=== PATIENT | male | born 1940 | race Caucasian/White ===

== ENCOUNTER 2017-02-01 10:44 | Inpatient (IN) | payer MEDICARE, MEDICAID ==
[2017-02-01 11:54] LABS: #Basophils 0.1 thou/uL (0.0-0.2); #Eosinphils 0.2 thou/uL (0.0-0.7); #Lymphocytes 1.4 thou/uL (1.20-3.40); #Monocytes 0.6 thou/uL (0.11-0.59); #Neutrophils 5.7 thou/uL (1.40-6.50); %Basophils 0.8 % (0.0-1.0); %Lymphocytes 17.8 % (21.0-51.0); %Neutrophils 72.5 % (42.0-75.0); Hemoglobin 15.2 g/dL (14.0-18.0); Mean Corpuscular HGB CONC 33.6 g/dL (32.0-36.0); Mean Corpuscular Hemoglobin 29.7 pg (27.0-31.0); Mean Corpuscular Volume 88.3 fl (80.0-94.0); Mean Platelet Volume 6.5 fL (7.4-10.4); Platelet Count 243 thou/uL (130-400); RBC Distribution Width 13.1 % (11.5-14.5); Red Blood Cell (RBC) Count 5.12 mill/uL (4.70-6.10); White Blood Cell (WBC) Count 7.9 thou/uL (4.8-10.8)
[2017-02-01 12:14] LABS: ALT (SGPT) 15 U/L (8-55); AST (SGOT) 14 U/L (5-34); Alkaline Phosphatase 79 U/L (40-150); Anion Gap 16 mmol/L (10-20); BUN (Urea Nitrogen) 22 mg/dL (8.4-25.7); Bilirubin, Total 0.6 mg/dL (0.2-1.2); CK (CPK) 103 U/L (30-200); CKMB 1.8 ng/mL (0-6.6); Calc. Creatinine Clearance 0 mL/min (70-130); Calcium 9.8 mg/dL (7.8-10.44); Carbon Dioxide 26 mmol/L (23-31); Chloride 103 mmol/L (98-107); Estimated GFR-MDRD 53; Globulin 2.9 g/dL (2.4-3.5); Glucose 120 mg/dL (83-110); Potassium 4.7 mmol/L (3.5-5.1); Protein, Total 6.9 g/dL (5.8-8.1); Sodium 140 mmol/L (136-145); Troponin I 0.032 ng/mL (< 0.028)
--- NOTE | 2017-02-01 12:20 | CT ---
HEAD CT WITHOUT CONTRAST 02/01/2017 HISTORY: Altered mental status. COMPARISON: 03/21/2016 TECHNIQUE: Serial axial CT imaging at 5 mm intervals, from the vertex through the skull base, without contrast. FINDINGS: The imaged paranasal sinuses and mastoid air cells are well aerated. There is no displaced calvaria l fracture. There is stable posterior left-sided periventricular encephalomacia within the occipital lobe, evide nce of prior left M[employer]PRENTICE infarction. No intracranial hemorrhage, midline shift, or mass effect. No ac ponce findings. There is a soft tissue mass in the midline frontal region, just superior to the nasal bones, measuri ng 1.6 cm in transverse dimension, grossly unchanged. IMPRESSION: 1. No acute findings. 2. 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 POS: [facility]
--- NOTE | 2017-02-01 12:35 | RAD ---
AP CHEST: Indication: Altered mental status. Comparison: 04-30-11 FINDINGS: The lungs are clear. There is a new dual-lead AICD. There are vascular calcifications involving the aortic arch which are stable. No pleural effusion or pneumothorax is evident. No acute osseous abnor mality is evident. IMPRESSION: No acute cardiopulmonary abnormality. POS: [facility]
[2017-02-01 13:22] LABS: Bilirubin Negative (Negative); Blood, Urine Negative (Negative); Glucose, Urine (Dipstick) 100 mg/dL (Negative); Leukocyte Trace (Negative); Nitrite Negative (Negative); Protein, Urine (Dipstick) Negative (Neg-Trace); Specific Gravity, Urine 1.015 (1.005-1.030); Urobilinogen 0.2 mg/dL (0.2-1.0)
[2017-02-01 13:30] LABS: Bacteria/HPF Rare-Few HPF (None Seen); Clarity Hazy (Clear); RBC/HPF 0-3 HPF (0-3)
[2017-02-01] MEDS ORDERED: Nitrofurantoin Monohyd/M-Cryst 100 MG CAP ONE (14:04)
[2017-02-01 15:30] VITALS: BMI 25.4
[2017-02-01] MEDS ORDERED: Docusate 100 MG CAP PO PRN (16:03)
[2017-02-01] MEDS ORDERED: Acetaminophen 325 MG TAB PO PRN (16:03)
[2017-02-01] MEDS ORDERED: Ondansetron ODT 4 MG TAB PO PRN (16:03)
[2017-02-01] MEDS ORDERED: Milk Of Magnesia 30 ML UDCUP PO PRN (16:03)
[2017-02-01] MEDS ORDERED: Loperamide HCl 2 MG CAP PO PRN (16:03)
[2017-02-01] MEDS ORDERED: Calcium Carbonate 500 MG ChewTAB PO PRN (16:03)
[2017-02-01] MEDS ORDERED: Dextrose 5% in Water 1,000 ML IV PRN (16:07)
[2017-02-01] MEDS ORDERED: Dextrose 50% Abboject 50 ML SYRINGE SLOW IVP PRN (16:07)
[2017-02-01] MEDS ORDERED: Melatonin 3 MG TAB PO PRN (16:10)
--- NOTE | 2017-02-01 20:08 | HP ---
DATE OF ADMISSION: 02/01/2017 CHIEF COMPLAINT: The patient was brought in from assisted living facility for abnormal behavior. 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 The patient was seen in my office at that time for establish care visit, was doing well, was mainly admitted to the assisted living facility due to some memory loss issues and not taking his medications reliably. The patient did well initially at the assisted living facility, but was brought back into the clinic on 01/16/2017 due to some abnormal behaviors that the staff had noticed. They were complaining of the patient being inappropriate at times and even exposing himself to the female staff per the nurses. Urinalysis was checked in the office and was found to be normal. The patient, nurse and myself had a discussion that the patient was having some difficulty transitioning to his new living environment and [place] and not necessarily always being appropriately dressed or knowing how to behave in group living facility. The patient was sent back to the assisted living facility and since that time apparently the behaviors have worsened. Last night the daughter was called with reports that the patient was not wanting to come out of his room to take his medications or his insulin. This morning the patient spoke to his daughter on the phone and convinced him to take his medications and per the staff report the patient came down to the nursing area to get medications and then wandered outside where he apparently defecated in his shorts, took his pants off the outside of the front of the building and then came back inside. At that point, the daughter was called due to the concern with his behaviors and altered mentation. The patient is seen in the ER today with daughter at the bedside. Patient is somewhat of a poor historian and history is obtained from daughter and medical staff. The patient has no complaints at this time, is not complaining of any confusion, headache, dizziness, weakness, chest pain, shortness of breath, essentially feels fine and is not really sure why he is in the ER. The daughter states when she arrived this AM, the patient was somewhat upset and even a bit combative even towards her. She states this is not typical behavior for him. PAST MEDICAL HISTORY: 1. Insulin-dependent diabetes, historically uncontrolled. His last A1c was 9.8 on 08/15/2016. 2. Hypertension. 3. History of aortic valve disease. He follows with Dr. Blackwell. 4. History of coronary artery disease. 5. Hyperlipidemia. 6. Age-related memory loss. Of note, the patient has never seen neurologist for this. PAST SURGICAL HISTORY: 1. Cataract surgery in 2000. 2. Pacemaker placement in 03/2012. 3. Aortic valve replacement in 03/2012. 4. Cholecystectomy in 2012. FAMILY HISTORY: Noncontributory. SOCIAL HISTORY: The patient resides in the assisted living facility in [place]. He is a former smoker, has been well over a decade since he last smoked. He is . He does not drink alcohol or use illicit drug use. He does not have a medical power of trademark attorney or an out of hospital DNR and is currently discussing these options with his daughter. Daughter Avelina is main point of contact. MEDICATIONS: 1. Melatonin 1 mg at bedtime as needed. 2. Lantus 25 units subcutaneous every evening. 3. Lisinopril 2.5 mg once daily. 4. Pravastatin 20 mg once daily. 5. Furosemide 40 mg once daily. 6. Potassium chloride 10 mEq once daily. 7. Metformin 1000 mg twice daily. 8. Glipizide 5 mg twice daily. 9. Aspirin 81 mg once daily. REVIEW OF SYSTEMS: GENERAL: The patient denies any weight gain or weight loss. He denies any fever, chills, or fatigue. HEENT: He denies any blurry vision, any runny nose, any ear pain, sore throat NECK: Denies any pain. CARDIOVASCULAR: Denies any chest pain, shortness of breath or swelling. RESPIRATORY: Denies any wheezing, cough, sputum production. GASTROINTESTINAL: Denies any nausea, vomiting or diarrhea, change in his bowel movements, constipation. GENITOURINARY: Denies any hematuria, dysuria, or flank pain. MUSCULOSKELETAL: Denies any weakness, myalgias, arthralgias, joint swelling.: Denies any rash. NEUROLOGIC: Denies any syncope, confusion, loss of consciousness, denies any seizure disorder. PHYSICAL EXAMINATION: VITAL SIGNS: Temperature is 97.9, blood pressure is 133/66, heart rate is 84, respirations 17, O2 saturation 96% on room air. GENERAL: The patient is alert and oriented x1. He is disoriented to place, as well as the year. He answered 1999 on the year and [place], [place] as the place. He is in no acute distress. He is cooperative and answering questions appropriately. HEENT: Head is significant for soft tissue mass between his eyes that is soft, nontender to palpation, no erythema. Pupils are equally round and reactive to light. Extraocular movements are intact. Oropharynx is moist without erythema or exudate. NECK: Supple, with full range of motion. Negative for carotid bruits. HEART: Is significant for 2/6 systolic murmur, regular rate and rhythm. RESPIRATORY: Lungs are clear to auscultation bilaterally. No wheezing, rhonchi , or rales. GASTROINTESTINAL: Soft, nontender, nondistended with normoactive bowel sounds. MUSCULOSKELETAL: Strength is 5/5 in all four extremities. Negative for clubbing, cyanosis or edema. NEUROLOGIC: Cranial nerves II-XII are grossly intact. He has mostly appropriate affect and answers most questions appropriately. He is non- combative and is pleasant at this time. He appears nondepressed. LABORATORY DATA AND IMAGING: CBC: White blood cell count 7.9, hemoglobin 15.2 , hematocrit 45.2, platelets 243. Chemistry panel: Sodium is 140, potassium 4.7, chloride 103, bicarbonate 26, BUN 22, creatinine 1.30. GFR 53. His glucose on serum was 120 and then subsequently checked 3 hours later and found to be 67. His liver function testing was normal. His troponin was mildly elevated at 0.032. Albumin is 4.0. Urinalysis is significant for 100+ glucose and trace leukocyte esterase with 11-20 white blood cells, and 4-6 squamous epithelial cells. 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 Chest x-ray, no acute cardiopulmonary abnormality. EKG was reportedly unremarkable, although I do not have a copy of it at this time. ASSESSMENT AND PLAN: 1. Altered mental status. The patient will be admitted to inpatient medical floor for further monitoring and evaluation of his behavioral change. Discussed with daughter the multiple possible etiologies for this including urinary tract infection as well as worsening memory loss/dementia with behavioral disturbance as well as this all could possibly just be attributable to his difficulty adjusting to his new group living environment. I discussed with the daughter that we will be starting him on antibiotics for his UTI and monitoring him closely while he will be here in the hospital for any further behavioral changes, which can be addressed. He may benefit from neuropsychiatric evaluation in the near future. At this time, the assisted living facility has refused to accept him back to the facility. We will make a decision about disposition whether it be at new assisted living facility versus higher level of care after we monitor the patient for a few days. The patient has been placed on fall risk precautions and he is being 24-hour visually monitored by the nurses close to the nursing station. 2. Urinary tract infection. We will start the patient on ciprofloxacin 250 mg to be renally dosed twice a day while awaiting the urine culture that is currently pending. 3. Hypoglycemia. The patient has a history of uncontrolled and somewhat better insulin-dependent diabetes mellitus. I am going to hold his glipizide for now and continue on his home insulin regimen with metformin and meal time correction scale. 4. Insulin-dependent diabetes mellitus. We will check an A1c in the hospital. The patient did not have his outpatient lab work done at his last visit in the clinic. We will continue him on his home insulin regimen. 5. Hypertension. We will continue on his home lisinopril. 6. History of aortic valve disease and coronary artery disease. We will continue the patient on his home medications. 7. Possible history of cerebrovascular accident. To the patient and daughter' s knowledge, the patient has no known history of prior stroke, although CT scan today shows that he has in fact had a prior cerebral infarction of the left posterior cerebral artery. We will continue him on aspirin and statin daily and keep his blood pressure under good control. Again, this patient may benefit from Neurology or Neuropsychiatric evaluation in the near future. DVT prophylaxis will be NICKY mendieta. THE PATIENT IS FULL CODE AT THIS TIME, but he is going to be discussing his code status as well as his medical power of trademark attorney with his daughter in the near future. DISPOSITION: It is such that the patient will be admitted to inpatient for acute behavioral changes and altered mental status with urinary tract infection with plan to return to either assisted living facility or higher level of care such as jail or [facility]. MANISH
[2017-02-01] MEDS: Cipro 250 MG TAB PO SCH (20:50)
[2017-02-01] MEDS: Pravastatin Sodium 20 MG TAB PO SCH (21:01)
[2017-02-01] MEDS: Levemir Flexpen 100 UNITS/ML PEN SC SCH (21:01)
[2017-02-02] MEDS: Cipro 250 MG TAB PO SCH ×2 (06:00→20:49)
[2017-02-02] MEDS: Furosemide 40 MG TAB PO SCH (06:01)
[2017-02-02] MEDS: Lisinopril 5 MG TAB PO SCH (08:13)
[2017-02-02] MEDS: Potassium Chloride 10 MEQ TAB PO SCH (08:13)
[2017-02-02 14:17] LABS: Hemoglobin A1c 8.2 % (4.0-6.0)
[2017-02-02] MEDS: HumaLOG 300 UNITS/3 ML VIAL SC PRN (17:19)
[2017-02-02] MEDS: Pravastatin Sodium 20 MG TAB PO SCH (20:49)
[2017-02-02] MEDS: Levemir Flexpen 100 UNITS/ML PEN SC SCH (20:49)
[2017-02-03] MEDS: Cipro 250 MG TAB PO SCH ×2 (06:00→20:16)
[2017-02-03] MEDS: Furosemide 40 MG TAB PO SCH (07:31)
[2017-02-03] MEDS ORDERED: Levemir Flexpen 100 UNITS/ML PEN SC SCH (08:19)
[2017-02-03] MEDS: Lisinopril 5 MG TAB PO SCH (08:31)
[2017-02-03] MEDS: Potassium Chloride 10 MEQ TAB PO SCH (08:32)
[2017-02-03] MEDS: HumaLOG 300 UNITS/3 ML VIAL SC PRN (16:31)
[2017-02-03 18:27] LABS: Folate (Folic Acid) 11.7 ng/mL (7.0-31.4)
[2017-02-03] MEDS: Pravastatin Sodium 20 MG TAB PO SCH (20:16)
[2017-02-04] MEDS: Cipro 250 MG TAB PO SCH (06:20)
[2017-02-04] MEDS: Potassium Chloride 10 MEQ TAB PO SCH (07:20)
[2017-02-04] MEDS: Furosemide 40 MG TAB PO SCH (07:21)
[2017-02-04 08:36] VITALS: BP 131/76; TEMP 96.7
[2017-02-04] MEDS: Lisinopril 5 MG TAB PO SCH (08:54)
--- NOTE | 2017-02-05 07:20 | DIS ---
DATE OF ADMISSION: 02/01/2017 DATE OF DISCHARGE: 02/04/2017 ADMITTING PHYSICIAN: Ivone Pualson DO DISCHARGING PHYSICIAN: Eliceo Chapman M.D. FINAL DIAGNOSES ON DISCHARGE: Altered mental status, resolved at baseline, urinary tract infection, improved, hypoglycemia, resolved, insulin-dependent diabetes, hypertension, history of coronary artery disease, history of cerebrovascular accident. BRIEF HOSPITAL COURSE: Mr. Lim is a 76-year-old male who was a resident of assisted living facility in [place] from 01/16 and patient presented to the emergency room due to change in mental status. Patient was noted to be wandering outside the facility without his shorts or even a pant and was noted to have defacated on himself, and this was not the patient's baseline. In the emergency room, the patient was noted to have a mild urinary tract infection which was most likely the cause of the altered mental status and subsequently admitted for some antibiotics. The patient was treated with Cipro 250 b.i.d. to be completed on the . Mental status progressively improved to baseline. Patient has some underlying dementia and daughter says that this is baseline. Due to the patient's mental status and issues in assisted living facility, the decision was made with the patient, his daughter, and primary care physician to admit him to correction. During hospitalization, the patient had some hypoglycemic episode, and his insulin Lantus was changed from 25 units to 20 units, and this helped him. His glipizide was also discontinued. During hospitalization, the patient had no other concerns, and he was easily redirected , and due to this, patient was subsequently discharged back to correction. The patient was discharged to correction in a stable condition to complete his Cipro on 02/07/2017 with final urine culture still pending. DISCHARGE MEDICATIONS: Acetaminophen 650 one tab q.6 p.r.n. pain, aspirin 81 mg daily, Cipro 250 b.i.d. to be completed on 02/07/2017, furosemide 40 daily, Lantus 20 at bedtime, lisinopril 2.5 daily, melatonin 3 mg p.o. at bedtime, Klor -Con 10 mEq p.o. daily, metformin 1000 mg b.i.d., Namenda 5 daily, pravastatin 20 mg at bedtime. FOLLOWUP: The patient to follow up with primary care physician in correction within 1 week. ACTIVITY: Ambulation with no concern. DIET: ADA diet. CODE STATUS: THE PATIENT IS A FULL CODE. Patient to have Accu-Cheks before meals and at bedtime. DISCHARGE VITAL SIGNS: Temperature 96.7, pulse 80, respirations 20, O2 saturation 97% on room air, blood pressure 131/76. MTDD
== END 2017-02-04 10:45 | DRG 690 ==
LOC: MADERS 10:44 → MADMS 14:30
PROVIDERS: ADMIT Family Medicine; ATTEND Family Medicine
DX: N39.0 Urinary tract infection, site not specified (principal); F03.91 Unspecified dementia, unspecified severity, with behavioral disturbance; E11.649 Type 2 diabetes mellitus with hypoglycemia without coma; Z79.4 Long term (current) use of insulin; I10 Essential (primary) hypertension; E78.5 Hyperlipidemia, unspecified; Z95.0 Presence of cardiac pacemaker; Z95.2 Presence of prosthetic heart valve; Z66 Do not resuscitate; Z79.82 Long term (current) use of aspirin; Z79.84 Long term (current) use of oral hypoglycemic drugs; Z86.73 Personal history of transient ischemic attack (TIA), and cerebral infarction without residual deficits; I25.10 Atherosclerotic heart disease of native coronary artery without angina pectoris
CPT/HCPCS: 36415; 36416; 70450; 71010; 80053; 81003; 81015; 82553; 82607; 82746; 83036; 84443; 84484; 85025; 87086; 93005; A4216; J1815

== ENCOUNTER 2017-03-01 15:07 | Outpatient (CLI) | payer MEDICARE, MEDICAID ==
[2017-03-01 15:43] LABS: Bacteria/HPF None Seen HPF (None Seen); Bilirubin Negative (Negative); Blood, Urine Negative (Negative); Clarity Clear (Clear); Glucose, Urine (Dipstick) 500 mg/dL (Negative); Leukocyte Negative (Negative); Nitrite Negative (Negative); Protein, Urine (Dipstick) Negative (Neg-Trace); RBC/HPF None Seen HPF (0-3); Specific Gravity, Urine 1.015 (1.005-1.030); Squamous Epithelial 0-3 HPF (0-3); Urobilinogen 0.2 mg/dL (0.2-1.0); WBC/HPF None Seen HPF (0-3); pH, Urine 5.5 (5.0-9.0)
== END 2017-03-01 15:08 | disposition home or self-care (01) ==
LOC: MADLABBHPM 15:07
PROVIDERS: ATTEND Family Medicine
DX: F03.91 Unspecified dementia, unspecified severity, with behavioral disturbance (principal)
CPT/HCPCS: 81001

== ENCOUNTER 2018-02-05 08:54 | Emergency (ER) | payer MEDICARE, MEDICAID ==
[2018-02-05 09:18] LABS: Hemoglobin 14.8 g/dL (14.0-18.0); Mean Corpuscular Volume 87.6 fL (80.0-94.0); Red Blood Cell (RBC) Count 5.11 mill/uL (4.70-6.10); White Blood Cell (WBC) Count 8.5 thou/uL (4.8-10.8)
[2018-02-05 09:19] LABS: Manual Diff?? YES; Mean Corpuscular HGB CONC 33.1 g/dL (32.0-36.0); Mean Platelet Volume 6.7 fL (7.4-10.4); Platelet Count 191 thou/uL (130-400); RBC Distribution Width 12.9 % (11.5-14.5)
[2018-02-05 09:24] LABS: Anion Gap 18 mmol/L (10-20); BUN (Urea Nitrogen) 16 mg/dL (8.4-25.7); Calc. Creatinine Clearance 0 mL/min (70-130); Calcium 9.8 mg/dL (7.8-10.44); Carbon Dioxide 23 mmol/L (23-31); Chloride 102 mmol/L (98-107); Estimated GFR-MDRD 76; Glucose 166 mg/dL (83-110); Potassium 4.5 mmol/L (3.5-5.1); Sodium 138 mmol/L (136-145)
[2018-02-05 09:27] LABS: Troponin I 0.033 ng/mL (< 0.028)
--- NOTE | 2018-02-05 09:35 | RAD ---
RADIOGRAPH CHEST 1 VIEW: HISTORY: 77-year-old male with cough. FINDINGS: The thoracic aorta is tortuous and ectatic. There is no evidence of air space density, pneumothorax, or pulmonary edema. The lateral costophrenic angles are sharp. There is a left subclavian AICD. The re is a metallic stent in the region of the aortic valve or ascending aorta. IMPRESSION: 1. No acute pulmonary findings. 2. Ectasia of thoracic aorta. 3. Automatic implantable cardioverter-defibrillator. 4. Stent at aortic root. srinath marshall POS: [facility]
[2018-02-05 09:42] LABS: Anisocytosis SLIGHT = 6-15 cells (100X) (0-5/hpf); Band 4 % (5-11); Lymphocytes 23 % (21-51); MDiff Complete? YES; Monocytes 2 % (0-10); Neutrophil 71 % (42-75); PLT Morphology Comment Appears Adequate
[2018-02-05] MEDS ORDERED: cefTRIAXone\\ROCEPHIN 1 GM VIAL ONE (09:50)
[2018-02-05 09:54] LABS: Clarity Clear (Clear)
[2018-02-05 09:56] LABS: Leukocyte Negative (Negative); Nitrite Negative (Negative)
[2018-02-05 09:57] LABS: Bilirubin Negative (Negative); Blood, Urine Negative (Negative); Glucose, Urine (Dipstick) 250 mg/dL (Negative); Protein, Urine (Dipstick) 100 mg/dL (Neg-Trace)
[2018-02-05 10:15] LABS: RBC/HPF 0-3 HPF (0-3); Squamous Epithelial 0-3 HPF (0-3); WBC/HPF None Seen HPF (0-3)
== END 2018-02-05 11:24 | disposition home or self-care (01) ==
LOC: MADERS 08:54
DX: F03.90 Unspecified dementia, unspecified severity, without behavioral disturbance, psychotic disturbance, mood disturbance, and anxiety (principal); Z79.4 Long term (current) use of insulin; Z79.899 Other long term (current) drug therapy; Z79.82 Long term (current) use of aspirin
CPT/HCPCS: 51701; 71045; 80048; 81003; 81015; 82553; 83605; 83880; 84484; 85025; 87040; 93005; 96374; J0696

== ENCOUNTER 2018-02-08 09:59 | Outpatient (CLI) | payer MEDICARE, OTHER ==
--- NOTE | 2018-02-08 11:23 | RAD ---
AP PELVIS 1 VIEW: Date: 02/08/18 HISTORY: 77-year-old male with history of fall and left hip pain. FINDINGS/IMPRESSION: No acute fracture or dislocation of the pelvis. Mild degenerative changes. POS: [facility]
--- NOTE | 2018-02-08 11:24 | RAD ---
RIGHT HIP TWO VIEWS: HISTORY: Fall and pain. COMPARISON: None. FINDINGS: The contour of the femoral head is maintained. The joint space is preserved. No fracture. IMPRESSION: No fracture. POS: [facility]
--- NOTE | 2018-02-08 11:25 | RAD ---
2 VIEWS RIGHT HIP: Date: 02/08/18 COMPARISON: None. HISTORY: Fall with right hip pain. FINDINGS: Two views of the right hip show no evidence of acute fracture or dislocation. No degenerative changes are seen. No focal soft tissue swelling is present. IMPRESSION: No significant right hip abnormality. POS: [facility]
--- NOTE | 2018-02-08 11:27 | CT ---
CT OF THE BRAIN WITHOUT CONTRAST: Date: 02/08/18 COMPARISON: 02/01/17. HISTORY: Fall today at detention with altered mental status. TECHNIQUE: Multiple contiguous axial images were obtained in a CT of the brain without contrast. FINDINGS: There is encephalomalacia in the left parieto-occipital region. Diffuse hypodensities in subcortical and periventricular white matter are likely secondary to small vessel ischemic disease. No large conf luent infarction is seen. There is no evidence of hydrocephalus, intracranial hemorrhage, or extra-ax ial fluid collections. There is a round soft tissue density mass in the glabellar region of the forehead. The calvarium is u nremarkable. The visualized paranasal sinuses and mastoid air cells are well aerated. IMPRESSION: 1. No evidence of acute intracranial abnormality. 2. Extensive small vessel ischemic disease. POS: [facility]
== END 2018-02-08 10:00 | disposition home or self-care (01) ==
LOC: MADCT 09:59
PROVIDERS: ATTEND Family Medicine
DX: F03.90 Unspecified dementia, unspecified severity, without behavioral disturbance, psychotic disturbance, mood disturbance, and anxiety (principal); R41.82 Altered mental status, unspecified; G40.909 Epilepsy, unspecified, not intractable, without status epilepticus; I67.82 Cerebral ischemia; Z91.81 History of falling
CPT/HCPCS: 70450; 72170